=== PATIENT | female | born 1940 ===

== ENCOUNTER 2021-11-11 11:17 | Outpatient (CLI) | payer OTHER ==
[~2021-11-11 11:17] MED LIST: LIBRAX CAPSULE1 CA1; PANADOL MAXIMU500 MG; VASOTEC10 MG
== END 2021-11-11 11:18 | disposition home or self-care (01) ==
LOC: NUCLEAR 11:17
PROVIDERS: ATTEND Internal Medicine
DX: M81.0 Age-related osteoporosis without current pathological fracture (principal); M06.4 Inflammatory polyarthropathy; M15.9 Polyosteoarthritis, unspecified; M79.7 Fibromyalgia